=== PATIENT | female | born 1955 | race Caucasian/White ===

== ENCOUNTER 2018-12-03 18:55 | Emergency (ER) | payer OTHER ==
[~2018-12-03] VITALS: Ht 160 cm; Wt 62.3 kg
[~2018-12-03 18:55] MED LIST: ACYC400T PO; ESOM40EC PO; FLUT1DSK4 IH; IPRA14.7 INH; MAGN200T5 PO; MYCO500T PO; POTA8TER12 PO; PRO.5 PO; THERA TEARS OP; [UNRECOGNIZED DRUG - CODE] PO
[2018-12-03 19:03] VITALS: BP 184/98
== END 2018-12-03 19:20 | disposition home or self-care (01) ==
LOC: MED 18:55
DX: G47.00 Insomnia, unspecified (principal); F43.9 Reaction to severe stress, unspecified; I10 Essential (primary) hypertension; E11.9 Type 2 diabetes mellitus without complications; C95.90 Leukemia, unspecified not having achieved remission; Z90.49 Acquired absence of other specified parts of digestive tract; Z79.2 Long term (current) use of antibiotics; Z79.899 Other long term (current) drug therapy; Z88.8 Allergy status to other drugs, medicaments and biological substances
CPT/HCPCS: 99282

== ENCOUNTER 2019-01-22 22:20 | Emergency (ER) | payer OTHER ==
[~2019-01-22] VITALS: Ht 162.6 cm; Wt 63.5 kg
[2019-01-22 22:30] VITALS: BP 146/88
--- NOTE | 2019-01-22 22:33 | NUR ---
TO LOBBY A/W BED AMBULATORY
--- NOTE | 2019-01-22 23:01 | NUR ---
PT AMBULATED TO ER BED 11
--- NOTE | 2019-01-22 23:05 | NUR ---
63 Y/O F, REPORTS VOMITING AND DIARRHEA FOR 1 DAY. PATIENT REPORTS VOMITING MORE THAN 10X TODAY AND RESULT, CHEST PAIN IS RATED 8/10. PATIENT IS [place] SPEAKING AND IS AT BEDSIDE. PATIENT TRIED EATING CRACKERS BUT CONTINUED TO VOMIT. SIDERAILS UP x1, WILL CONTINUE TO MONITOR.
[2019-01-22 23:07] VITALS: BP 146/88
[2019-01-22] MEDS ORDERED: PROCHLORPERAZINE 10 MG/2 ML VIAL IM ONE (23:55)
[2019-01-22] MEDS ORDERED: diphenhydrAMINE 50 MG/ML VIAL IM ONE (23:55)
--- NOTE | 2019-01-23 01:12 | NUR ---
Patient discharged with v/s stable. Written and verbal after care instructions given and explained. Patient alert, oriented and verbalized understanding of instructions. Ambulatory with steady gait. All questions addressed prior to discharge. ID band removed. Patient advised to follow up with PMD. Rx of COMPAZINE AND BENEDRYL given. Patient educated on indication of medication including possible reaction and side effects. Opportunity to ask questions provided and answered.
== END 2019-01-23 01:13 | disposition home or self-care (01) ==
LOC: MED 22:20
DX: G44.209 Tension-type headache, unspecified, not intractable (principal); R11.10 Vomiting, unspecified; I10 Essential (primary) hypertension; E11.9 Type 2 diabetes mellitus without complications; Z85.9 Personal history of malignant neoplasm, unspecified; Z79.899 Other long term (current) drug therapy
CPT/HCPCS: 96372; 99283; J0780; J1200

== ENCOUNTER 2022-03-25 20:55 | Emergency (ER) | payer OTHER ==
[~2022-03-25] VITALS: Ht 162.6 cm; Wt 63.5 kg
[~2022-03-25 20:55] MED LIST changes: -ACYC400T PO; +ACYC400T14 PO; +POTA8TAB17 PO; -POTA8TER12 PO
[2022-03-25 20:56] VITALS: BP 171/94
--- NOTE | 2022-03-25 21:01 | NUR ---
TO BED 12 FROM LOBBY
[2022-03-25] MEDS ORDERED: KETOROLAC 30 MG/ML VIAL IVP ONE (22:10)
[2022-03-25 22:28] LABS: BASOPHILS # (AUTO) 0.1 K/uL (0.00-0.22); BASOPHILS % (AUTO) 0.8 % (0.0-2.0); EOSINOPHILS # (AUTO) 0.1 K/uL (0-0.4); EOSINOPHILS % (AUTO) 1.9 % (0.0-4.0); HEMATOCRIT 40.9 % (36-48); HEMOGLOBIN 13.8 g/dL (12.0-16.0); LYMPHOCYTES # (AUTO) 3.1 K/uL (2.5-16.5); LYMPHOCYTES % (AUTO) 45.3 % (20.5-51.1); MEAN CORPUSCULAR HEMOGLOBIN 29 pg (27-31); MEAN CORPUSCULAR HGB CONC 34 g/dL (33-37); MEAN CORPUSCULAR VOLUME 87.3 fL (80-94); MONOCYTES # (AUTO) 0.6 K/uL (0.8-1.0); MONOCYTES % (AUTO) 8.5 % (1.7-9.3); NEUTROPHILS % (AUTO) 43.5 % (42.2-75.2); PLATELET COUNT (AUTO) 204 K/uL (140-450); RED BLOOD CELL COUNT(AUTO) 4.69 MIL/uL (4.20-5.40); RED CELL DISTRIBUTION WIDTH 13.7 % (11.6-13.7); WHITE BLOOD COUNT (AUTO) 6.8 K/uL (4.8-10.8)
[2022-03-25 22:44] LABS: ALBUMIN 4.1 g/dL (3.4-5.0); ANION GAP 12.5 (8-16); CARBON DIOXIDE 29.1 mmol/L (21-32); CREATININE 0.8 mg/dL (0.6-1.3); POTASSIUM 3.6 mmol/L (3.5-5.1); TOTAL BILIRUBIN 0.2 mg/dL (0.0-1.0)
[2022-03-25 23:18] LABS: APPEARANCE,URINE CLEAR (CLEAR); BILIRUBIN,URINE NEGATIVE (NEGATIVE); BLOOD, URINE NEGATIVE (NEGATIVE); COLOR,URINE YELLOW (YELLOW); LEUKOCYTE ESTERASE ,URINE 3+ (NEGATIVE); NITRITE, URINE NEGATIVE (NEGATIVE); UGLUCOSE NEGATIVE (NEGATIVE)
--- NOTE | 2022-03-25 23:20 | NUR ---
Patient lying in bed, A/Ox4, chest rise and fall symmetrical, no s/s of distress
[2022-03-25 23:26] LABS: RBC,URINE 0-5 /HPF (0-5)
--- NOTE | 2022-03-26 00:10 | NUR ---
Patient lying in bed, A/Ox4, chest rise and fall symmetrical, no s/s of distress
[2022-03-26] MEDS ORDERED: IBUP-2213 PO (00:16)
[2022-03-26] MEDS ORDERED: CIPR500T4 PO (00:16)
[2022-03-26 00:36] VITALS: BP 122/84
== END 2022-03-26 00:35 | disposition home or self-care (01) ==
LOC: MED 20:55
DX: N39.0 Urinary tract infection, site not specified (principal); R10.31 Right lower quadrant pain; E11.9 Type 2 diabetes mellitus without complications; I10 Essential (primary) hypertension; Z79.899 Other long term (current) drug therapy; Z90.49 Acquired absence of other specified parts of digestive tract; Z90.710 Acquired absence of both cervix and uterus; Z85.89 Personal history of malignant neoplasm of other organs and systems
CPT/HCPCS: 36415; 74176; 80053; 81001; 83690; 85025; 87086; 96374; 99285; J1885; 99284